=== PATIENT | female | born 1990 | race Caucasian/White ===

== ENCOUNTER 2020-09-22 03:37 | Emergency (ER) | payer SELFPAY ==
[2020-09-22] MEDS ORDERED: Ondansetron PF 4 MG/2 ML Vial ONE (04:22)
[2020-09-22] MEDS ORDERED: Morphine 4 MG/ML VIAL ONE (04:22)
[2020-09-22 04:43] LABS: #Basophils 0.1 thou/uL (0.0-0.2); #Eosinphils 0.3 thou/uL (0.0-0.7); #Lymphocytes 2.4 thou/uL (1.20-3.40); #Monocytes 0.7 thou/uL (0.11-0.59); #Neutrophils 10.1 thou/uL (1.40-6.50); %Basophils 0.4 % (0.0-1.0); %Eosinophils 1.9 % (0.0-10.0); %Lymphocytes 17.5 % (21.0-51.0); %Monocytes 5.4 % (0.0-10.0); %Neutrophils 74.8 % (42.0-75.0); Hemoglobin 12.7 g/dL (12.0-16.0); Mean Corpuscular HGB CONC 32.7 g/dL (32.0-36.0); Mean Corpuscular Hemoglobin 27.9 pg (27.0-31.0); Mean Corpuscular Volume 85.4 fL (78.0-98.0); Mean Platelet Volume 7.6 fL (7.4-10.4); Platelet Count 341 thou/uL (130-400); RBC Distribution Width 13.7 % (11.5-14.5); Red Blood Cell (RBC) Count 4.54 mill/uL (4.20-5.40); White Blood Cell (WBC) Count 13.5 thou/uL (4.8-10.8)
[2020-09-22 05:32] LABS: Albumin 3.9 g/dL (3.5-5.0)
[2020-09-22 05:34] LABS: Calcium 9.1 mg/dL (7.8-10.44); Chloride 103 mmol/L (98-107); Potassium 4.3 mmol/L (3.5-5.1); Sodium 139 mmol/L (136-145)
[2020-09-22 05:35] LABS: Globulin 3.6 g/dL (2.4-3.5); Glucose 155 mg/dL (70-105); Protein, Total 7.5 g/dL (6.0-8.3)
[2020-09-22 05:36] LABS: Anion Gap 14 mmol/L (10-20); Carbon Dioxide 26 mmol/L (22-29)
[2020-09-22 05:37] LABS: Bilirubin, Total 0.3 mg/dL (0.2-1.2)
[2020-09-22 05:38] LABS: Alkaline Phosphatase 124 U/L (40-110); Calc. Creatinine Clearance 0 mL/min (70-130)
[2020-09-22 05:39] LABS: BUN (Urea Nitrogen) 21 mg/dL (7.0-18.7)
[2020-09-22 05:40] LABS: AST (SGOT) 16 U/L (5-34)
[2020-09-22 05:41] LABS: ALT (SGPT) 24 U/L (8-55)
== END 2020-09-22 07:44 | disposition home or self-care (01) ==
LOC: ERS 03:37
DX: L03.116 Cellulitis of left lower limb (principal); L03.115 Cellulitis of right lower limb; F17.210 Nicotine dependence, cigarettes, uncomplicated
CPT/HCPCS: 36415; 80053; 83605; 85025; 87040; 87149; 96374; 96375; J2270; J2405

== ENCOUNTER 2020-12-01 08:27 | Emergency (ER) | payer SELFPAY ==
[2020-12-01] MEDS ORDERED: predniSONE 20 MG TAB ONE ×2 (09:33→09:34)
[2020-12-01 10:41] LABS: SARS-CoV-2 NAA Rapid Test Not Detected (NotDetected)
== END 2020-12-01 13:50 | disposition home or self-care (01) ==
LOC: ERS 08:27
DX: J06.9 Acute upper respiratory infection, unspecified (principal); E28.2 Polycystic ovarian syndrome; F17.210 Nicotine dependence, cigarettes, uncomplicated; R06.2 Wheezing; R06.02 Shortness of breath; R07.81 Pleurodynia; R06.00 Dyspnea, unspecified; Z20.822 Contact with and (suspected) exposure to COVID-19
CPT/HCPCS: 71045; 94640; J7512; J7620; U0002; U0005

== ENCOUNTER 2020-12-02 16:05 | Emergency (ER) | payer SELFPAY ==
[2020-12-02 17:49] LABS: #Eosinphils 0.1 thou/uL (0.0-0.7); #Lymphocytes 0.9 thou/uL (1.20-3.40); #Monocytes 0.7 thou/uL (0.11-0.59); %Basophils 0.2 % (0.0-1.0); %Eosinophils 0.6 % (0.0-10.0); %Lymphocytes 8.7 % (21.0-51.0); %Monocytes 6.2 % (0.0-10.0); %Neutrophils 84.3 % (42.0-75.0); Hemoglobin 12.7 g/dL (12.0-16.0); Mean Corpuscular HGB CONC 33.9 g/dL (32.0-36.0); Mean Corpuscular Hemoglobin 29.3 pg (27.0-31.0); Mean Corpuscular Volume 86.6 fL (78.0-98.0); Mean Platelet Volume 8.2 fL (7.4-10.4); Platelet Count 267 thou/uL (130-400); Red Blood Cell (RBC) Count 4.33 mill/uL (4.20-5.40); White Blood Cell (WBC) Count 10.7 thou/uL (4.8-10.8)
[2020-12-02] MEDS ORDERED: Ketorolac Tromethamine 30 MG/ML VIAL ONE (17:53)
[2020-12-02 18:10] LABS: ALT (SGPT) 29 U/L (8-55); AST (SGOT) 21 U/L (5-34); Albumin 3.7 g/dL (3.5-5.0); Alkaline Phosphatase 92 U/L (40-110); Anion Gap 11 mmol/L (10-20); BUN (Urea Nitrogen) 13 mg/dL (7.0-18.7); Bilirubin, Total 0.3 mg/dL (0.2-1.2); Calc. Creatinine Clearance 0 mL/min (70-130); Calcium 8.7 mg/dL (7.8-10.44); Carbon Dioxide 27 mmol/L (22-29); Chloride 102 mmol/L (98-107); Globulin 3.3 g/dL (2.4-3.5); Glucose 153 mg/dL (70-105); Potassium 4.6 mmol/L (3.5-5.1); Sodium 135 mmol/L (136-145)
[2020-12-02] MEDS ORDERED: HYDROcodone/Acetaminophen 10/325 mg Tablet ONE (19:09)
[2020-12-02] MEDS ORDERED: cefTRIAXone\\ROCEPHIN 1 GM VIAL ONE (19:40)
[2020-12-02] MEDS ORDERED: Lidocaine 1% (PF) 30 ML VIAL ONE (19:41)
[2020-12-02] MEDS ORDERED: Clindamycin 300 MG/2 ML VIAL IM SCH (19:45)
== END 2020-12-02 19:50 | disposition home or self-care (01) ==
LOC: ERS 16:05
DX: J06.9 Acute upper respiratory infection, unspecified (principal); L03.115 Cellulitis of right lower limb; F17.210 Nicotine dependence, cigarettes, uncomplicated
CPT/HCPCS: 71045; 80053; 83605; 84484; 85025; 93005; 94640; 94760; 96372; J0696; J1885; J2001; J3490; J7620

== ENCOUNTER 2020-12-09 04:44 | Emergency (ER) | payer SELFPAY ==
[2020-12-09] MEDS ORDERED: Ketorolac Tromethamine 30 MG/ML VIAL ONE (05:10)
[2020-12-09] MEDS ORDERED: Albuterol 200 PUFF (6.7GM INHALER) ONE (05:10)
[2020-12-09] MEDS ORDERED: predniSONE 20 MG TAB ONE (05:49)
== END 2020-12-09 06:12 | disposition home or self-care (01) ==
LOC: ERS 04:44
DX: J40 Bronchitis, not specified as acute or chronic (principal); I89.0 Lymphedema, not elsewhere classified; F17.210 Nicotine dependence, cigarettes, uncomplicated; Z79.52 Long term (current) use of systemic steroids; Z79.899 Other long term (current) drug therapy
CPT/HCPCS: 96372; J1885; J7512

== ENCOUNTER 2020-12-13 00:07 | Emergency (ER) | payer OTHER, SELFPAY ==
[2020-12-13] MEDS ORDERED: Ketorolac Tromethamine 30 MG/ML VIAL ONE (00:43)
[2020-12-13 00:52] LABS: #Eosinphils 0.2 thou/uL (0.0-0.7); #Lymphocytes 2.4 thou/uL (1.20-3.40); #Monocytes 0.8 thou/uL (0.11-0.59); #Neutrophils 11.1 thou/uL (1.40-6.50); %Basophils 0.3 % (0.0-1.0); %Eosinophils 1.4 % (0.0-10.0); %Lymphocytes 16.7 % (21.0-51.0); %Monocytes 5.5 % (0.0-10.0); %Neutrophils 76.1 % (42.0-75.0); Hemoglobin 13.8 g/dL (12.0-16.0); Mean Corpuscular HGB CONC 34.2 g/dL (32.0-36.0); Mean Corpuscular Hemoglobin 29.3 pg (27.0-31.0); Mean Corpuscular Volume 85.7 fL (78.0-98.0); Mean Platelet Volume 7.7 fL (7.4-10.4); Platelet Count 307 thou/uL (130-400); RBC Distribution Width 14.3 % (11.5-14.5); White Blood Cell (WBC) Count 14.6 thou/uL (4.8-10.8)
[2020-12-13] MEDS ORDERED: cefTRIAXone\\ROCEPHIN 1 GM VIAL ONE (02:06)
[2020-12-13] MEDS ORDERED: Lidocaine 1% PF 5 ML VIAL ONE (02:06)
== END 2020-12-13 02:24 | disposition home or self-care (01) ==
LOC: ERS 00:07
DX: I89.0 Lymphedema, not elsewhere classified (principal); F17.210 Nicotine dependence, cigarettes, uncomplicated
CPT/HCPCS: 36415; 83605; 85025; 96372; 99284; J0696; J1885; J3490